=== PATIENT | male | born 1955 | race African-American/Black ===

== ENCOUNTER 2021-05-07 16:09 | Emergency (ER) | payer MEDICARE, OTHER ==
[~2021-05-07] VITALS: Ht 170.2 cm; Wt 72.6 kg
[2021-05-07] MEDS ORDERED: HALOPERIDOL LACTATE INJ 5 MG/ML VIAL ONE (16:23)
[2021-05-07] MEDS ORDERED: diphenhydrAMINE HCL 50 MG/ML VIAL ONE (16:23)
[2021-05-07] MEDS ORDERED: LORAZEPAM INJ 2 MG/ML VIAL ONE (16:24)
[2021-05-07] MEDS ORDERED: HALOPERIDOL LACTATE INJ 5 MG/ML VIAL IVP ONE (16:30)
[2021-05-07] MEDS ORDERED: diphenhydrAMINE HCL 50 MG/ML VIAL IM ONE (16:30)
[2021-05-07] MEDS ORDERED: LORAZEPAM INJ 2 MG/ML VIAL IM ONE (16:30)
[2021-05-07 17:07] LABS: BASOPHILS # (AUTO) 0.1 K/uL (0.0-0.2); HEMATOCRIT 37 % (39-51); HEMOGLOBIN 11.6 g/dL (13.5-17.5); LYMPHOCYTES # (AUTO) 1.4 K/uL (0.8-4.8); LYMPHOCYTES % (AUTO) 23.4 % (20.0-44.0); MEAN CORPUSCULAR HGB CONC 31 g/dl (31.0-36.0); MEAN CORPUSCULAR VOLUME 70 fL (80-96); MONOCYTES # (AUTO) 0.6 K/uL (0.1-1.30); MONOCYTES % (AUTO) 9.9 % (2.0-12.0); NEUTROPHILS # (AUTO) 3.6 K/uL (1.8-8.9); NEUTROPHILS % (AUTO) 59.7 % (43.0-81.0); PLATELET COUNT (AUTO) 239 K/uL (150-450); RED BLOOD CELL COUNT(AUTO) 5.29 MIL/uL (4.5-6.0); WHITE BLOOD COUNT (AUTO) 6.1 K/uL (4.3-11.0)
[2021-05-07 17:11] LABS: CALCIUM, SERUM 8.7 mg/dL (8.5-10.1); CARBON DIOXIDE 23 mmol/L (21-32); CHLORIDE 108 mmol/L (98-107); CREATININE 1.9 mg/dL (0.6-1.3); GLUCOSE 102 mg/dL (74-106); POTASSIUM 4.1 mmol/L (3.5-5.1); SODIUM SERUM 143 mmol/L (136-145); UREA NITROGEN, BLOOD 28 mg/dL (7-18)
[2021-05-07 17:25] LABS: ALANINE AMINOTRANSFERASE 27 U/L (12-78); ALBUMIN 3.6 g/dL (3.4-5.0); ALCOHOL, BLOOD < 3 mg/dL (0-0); ALKALINE PHOSPHATASE 69 U/L (46-116); ASPARTATE AMINOTRANSFERASE 31 U/L (15-37); BILIRUBIN,DIRECT 0.1 mg/dL (0.0-0.2); BILIRUBIN,TOTAL 0.3 mg/dL (0.2-1.0); TOTAL PROTEIN, SERUM 7.3 g/dL (6.4-8.2)
[2021-05-07 17:27] LABS: ACETAMINOPHEN < 10 ug/ml (10-30)
--- NOTE | 2021-05-07 18:25 | NUR ---
COLE MORAN "Bystander called- was found wandering in the park, disoriented states he wants to get his laundry. Gets easily agitated". The patient is alert and oriented x1. Denies pain. In room air and denies SOB. Respiration regular and unlabored. Will continue to monitor the patient.
--- NOTE | 2021-05-07 18:27 | NUR ---
COVID SWAB DONE AND SENT TO THE LAB
--- NOTE | 2021-05-07 20:40 | NUR ---
URINE COLLECTED AND SENT TO LAB
[2021-05-07 20:57] LABS: BILIRUBIN,URINE SMALL (NEGATIVE); COLOR,URINE YELLOW (YELLOW); LEUKOCYTE ESTERASE ,URINE Negative (NEGATIVE); NITRITE, URINE Negative (NEGATIVE); PH,URINE 5.5 (5.0-8.0); PROTEIN,URINE 30 mg/dl (NEGATIVE); UGLUCOSE Negative (NEGATIVE); UROBILINOGEN,URINE 0.2 EU/dL (0.2)
[2021-05-07 21:02] LABS: BACTERIA,URINE Rare /HPF (None Seen); RBC,URINE NONE SEEN /HPF (0-2); SQUAMOUS EPITHELIAL CELL,UR Few /HPF (None Seen); WBC,URINE NONE SEEN /HPF (0-3)
--- NOTE | 2021-05-08 04:30 | NUR ---
PATIENT SLEEPING IN BED, EASY TO AROUSE. VSS. WILL CONTINUE TO MONITOR.
--- NOTE | 2021-05-08 08:00 | NUR ---
THE PATIENT IS RECEIVED IN ER BED #12. DENIES PAIN. IN ROOM AIR AND DENIES SOB. RESPIRATION REGULAR AND UNLABORED. WILL CONTINUE TO MONITOR THE PATIENT.
--- NOTE | 2021-05-08 11:11 | NUR ---
HOME ADDRESS [address] [place] [address] DIRECTOR [facility] LIC# [id number] CAREGIVER SAHIL INGRAM [phone]
[2021-05-08 12:07] VITALS: BP 116/72
--- NOTE | 2021-05-08 12:07 | NUR ---
Patient given written and verbal discharge instructions. Patient verbalizes understanding of instructions. Patient is ambulatory with steady gait. Refuses offer of group home placement. Patient given list of available shelters in surrounding area.
--- NOTE | 2021-05-08 14:08 | NUR ---
"SS Consult: SS consult for behavioral. Pt. Is a 65-year-old male. Pt. did not demonstrate adequate insight to the reason for hospitalization. Per pt., he was brought to hospital by ambulance. Pt. was oriented x3, alert, and was not cooperative. During interview, pt. was not capable of following directions and appeared unkempt. Evidenced by: dirty clothing, red eyes, bad hygiene. Pt.s mood was irritable and angry. Pt. was aggressive and wanted to leave hospital. SW explored pt.s living situation. Per pt., he lives somewhere in [place] but could not provide address. ED nurse found a caregivers number in pt.s stuff. SW contact Keshav [pt.s caregiver, ]. Caregiver denied knowing pt. and told us to stop contacting her. Pt. agreed to signed homeless waiver, and SW provided pt. with tap card. Plan: SW provided available homeless resources and pt. accepted. Pt. will return to [place]. Resources Provided: Winter Shelters: SPA 2 | [facility] Address: Confidential (call for location ) Population Served: Coed # of Beds: 57 SPA 4 | [facility] Provider: Home at Last Address: [address] [place] [address] # of Beds: 49 Population Served: Coed SPA 6 | [facility] Provider: Home at Last Address: [address] [place] [address] # of Beds: 49 Population Served: Coed Jairo Shane [facility] Provider: Cece Shane [facility] Address: [address] [facility] [address] # of Beds: 20 Population Served: Women [facility] Facility Provider: Home at Last Address: [address] [facility] [address] # of Beds: 30 Population Served: Women SPA 8 | [facility] Library Provider: Lauren of [place] Address: [address] [facility] [address] # of Beds: 65 Population Served: [facility] Year-round shelters: [facility] [address] [place], [place] [id number] ; [place] [facility] [address] [facility] [place] [address]; [place] [facility] [id number] [facility] [address] Winter Shelters: Akilah Mast [place] Provider: Lauren [facility] [place] Address: [address], [address] # of Beds: 47 Population Served: [facility] 6 | [facility] Nusrat Pena [place] Provider: Home at Last Address: [address], [address] # of Beds: 66 Population Served: [facility] [place] Provider: First to Serve Address: [address] [facility], [address] # of Beds: 56 Population Served: [facility] Juan F MonsonMona [place] Provider: [facility] Address: [address] [facility], [address] # of Beds: 49 Population Served: [facility] 8 | [facility] Provider: First to Serve Address: [address] [facility], [address] # of Beds: 37 Population Served: [facility] Hygiene: [facility] [facility]: [address] [address] ; [facility] [address] [facility] ; [facility] [address] Vasquez . Food Resources: [place] [facility] at [facility]- [address] [place]; Meet Each Need with Dignity (MEND) [address] [place]; [facility] Food [facility]ry [address] [facility]; [facility] [address] [facility] [place]. Mental Health resources provided: [facility] [address] [place] [address] ; [facility] [address] [facility] [address], [place] [address] ; [facility] [address] [place] [address] ; [facility] [address] [place], [place] [address] Healthcare Clinics: [facility] [address] [facility], [address] [place]. [place] ; [facility] [address] [facility] [address] [place] [address]; [facility] [address] [facility]. [place] [phone]) [phone] Counseling--Outpatient [facility] [address], [place] [address] (Specializes in in-depth psychotherapy for emotional distress: anxiety, depression, interpersonal conflicts, life transitions, childhood abuse) [facility] [address] [place] [address] (Assist with solving problem marital difficulties, separation & divorce, aging parents, & grief, chronic & terminal illness) [facility] [address] [place] [address] (Deal with loss & grief, anxiety, marital difficulties) Homebound/Mental Health Services [address] [place], [place] [address] (Provide in-home mental services to people who are incapable of leaving their homes) [facility] the Elderly Senior Service/Resource Center [address] [place] [address] [facility] [address] [facility] Hospital[facility] [place], [place] [phone] PSYCHIATRIC OUTPATIENT SERVICES [facility] Partial Hospitalization and Intensive Outpatient Program (Managed Care and [place] Only)[address] [facility] [phone] [facility] Partial Hospitalization and Outpatient [id number] [place], [place] [phone] ORAL CALDERON [facility] [id number] [facility] [place], [place] [phone] [facility] Oral Calderon Partial Hospitalization and Outpatient [id number] Em[facility]ita [facility] Oral Calderon, [phone] Substance Abuse resources provided included: [facility] Substance Abuse Self-Helpline ([facility]) ; CRI -HELP [address] [facility]. [place] [address] ; [facility] [address] [facility] [address] ; [facility] [address] [facility] [address] ; [facility] [place] [address] [facility] [phone] ; [facility] [address] [facility] [address] ; [facility] [address] [facility] [id number] ; [facility] Substance Abuse Helpline([facility] ; [facility] ; [facility]ically [facility] [place]; [facility] [place]; [facility] Oral raad; [facility] [place]; [facility] [place]; [facility] [place]; Alcoholics Anonymous -SFV; [place] ; Marijuana Anonymous -SFV; Narcotics Anonymous [email or web address];"
== END 2021-05-08 12:07 | disposition home or self-care (01) ==
LOC: EDBD 16:13 → ER 16:13
DX: R46.2 Strange and inexplicable behavior (principal); I10 Essential (primary) hypertension; Z86.73 Personal history of transient ischemic attack (TIA), and cerebral infarction without residual deficits; Z86.69 Personal history of other diseases of the nervous system and sense organs; Z59.02 Unsheltered homelessness; D50.9 Iron deficiency anemia, unspecified; F15.90 Other stimulant use, unspecified, uncomplicated
CPT/HCPCS: 36415; 80048; 80076; 80143; 80307; 80320; 81001; 85025; 87426; 93005; 96372 ×2; 99285; J1200; J1630; J2060; C9803; G0480